=== PATIENT | female | born 1980 | race Caucasian/White ===

== ENCOUNTER 2021-06-09 10:09 | Inpatient (IN) | payer BC ==
[~2021-06-09] VITALS: Ht 165.1 cm; Wt 103.9 kg
[2021-06-09] MEDS ORDERED: ACETAMINOPHEN 650MG SUPP PR STA (10:54)
[2021-06-09] MEDS ORDERED: SODIUM CHLORIDE 0.9% 1,000 ML IV ONE (11:00)
[2021-06-09 11:36] LABS: BASOPHILS % 0.2 % (0.0-2.0); HEMATOCRIT. 43.9 % (36.0-48.0); HEMOGLOBIN. 15.3 g/dL (12.0-16.0); LYMPHOCYTES % 20.2 % (20.0-50.0); MEAN CORPUSCULAR HEMOGLOBIN 31.6 pg (28.0-32.0); MEAN CORPUSCULAR VOLUME 90.7 fL (81.0-99.0); MEAN PLATELET VOLUME 7.7 fl (7.4-10.4); MONOCYTES % 7.6 % (2.0-8.0); PLATELET 209 x1000/uL (130-400); RED BLOOD CELL COUNT 4.85 mill/uL (4.2-5.4); RED CELL DISTRIBUTION WIDTH 13.6 % (11.6-14.6)
[2021-06-09 11:41] LABS: CHLORIDE 106 mEq/L (98-107)
[2021-06-09 11:46] LABS: ETHANOL BLOOD < 10 mg/dL
[2021-06-09 11:49] LABS: PROTHROMBIN TIME 10.8 sec (9.6-11.0)
[2021-06-09 11:51] LABS: CREATINE KINASE 66 IU/L (26-192)
[2021-06-09 12:10] LABS: HCG SCREEN NEGATIVE
[2021-06-09] MEDS ORDERED: DEXAMETHASONE 10 MG/ML VIAL IV ONE (12:30)
[2021-06-09] MEDS ORDERED: AZITHROMYCIN 500 MG in DEXT 5% WATER 250 ML IV SCH (12:30)
[2021-06-09] MEDS ORDERED: CEFTRIAXONE 1 G PREMIX 50 ML IV ONE (12:30)
[2021-06-09] MEDS ORDERED: KETOROLAC 15MG/ML VIAL IV ONE (12:30)
[2021-06-09 15:14] LABS: CLARITY URINE TURBID (CLEAR); COLOR URINE DARK YELLOW (YELLOW); KETONES URINE TRACE (NEGATIVE); LEUKOCYTE ESTERASE URINE 1+ (NEGATIVE); NITRITE URINE NEGATIVE (NEGATIVE); OCCULT BLOOD URINE 2+ (NEGATIVE); PH URINE 6.5 (4.5-8.0); PROTEIN URINE 2+ (NEGATIVE); SPECIFIC GRAVITY URINE 1.025 (1.005-1.030)
[2021-06-09 15:52] LABS: *BARBITURATES SCREEN URINE NEGATIVE (NEGATIVE)
[2021-06-09 15:53] LABS: *AMPHETAMINES SCREEN URINE NEGATIVE (NEGATIVE); *BENZODIAZEPINES SCREEN URINE NEGATIVE (NEGATIVE); *COCAINE SCREEN URINE NEGATIVE (NEGATIVE); METHADONE URINE SCREEN NEGATIVE (NEGATIVE); OPIATES URINE SCREEN NEGATIVE (NEGATIVE)
[2021-06-09 15:54] LABS: CANNABINOID URINE SCREEN NEGATIVE (NEGATIVE); PHENCYCLIDINE URINE SCREEN NEGATIVE (NEGATIVE)
[2021-06-10 10:56] VITALS: BP 130/63
[2021-06-10] MEDS ORDERED: DEXTROSE 50% WATER 50ML SYRINGE IV PRN (11:00)
[2021-06-10] MEDS ORDERED: IPRATROPIUM/ALBUTEROL 0.5-3(2.5)MG/3ML NEB HHN PRN ×3 (11:00→14:30)
[2021-06-10] MEDS ORDERED: METF-873 MT (11:06)
[2021-06-10] MEDS ORDERED: MONT5TAB13 MT (11:06)
[2021-06-10] MEDS ORDERED: CETI5TAB5 MT (11:06)
[2021-06-10 11:32] LABS: BG BASE EXCESS 0.6 mmol/L (-2.0-2.0); BG CARBOXYHEMOGLOBIN 0.1 % (0.5-1.5); BG DEOXYHEMOGLOBIN 2.1 % (0.0-5.0); BG HCO3 ACT 24.2 mmol/L (22.0-26.0); BG METHEMOGLOBIN 0.4 % (0.0-1.5); BG OXYGEN SATURATION 97.9 % (92.0-98.5); BG OXYHEMOGLOBIN 97.4 % (94.0-97.0); BG PH 7.446 (7.350-7.450); BG PO2 105.4 mmHg (75.0-100.0); BG SAMPLE SITE LEFT BRACHIAL; BG TOTAL HEMOGLOBIN 15.7 g/dL (12.0-18.0); BG VENT MODE MASK - SIMPLE
[2021-06-10 12:00] VITALS: BP 130/63
[2021-06-10] MEDS: BLOOD SUGAR DIAGNOSTIC STRIP TEST SCH ×3 (12:21→21:22)
[2021-06-10] MEDS: INSULIN LISPRO 100 UNITS/ML SUBCUT SCH ×3 (12:22→21:22)
[2021-06-10] MEDS ORDERED: AZITHROMYCIN 500 MG in DEXT 5% WATER 250 ML IV SCH ×2 (14:00→16:00)
[2021-06-10] MEDS ORDERED: DEXAMETHASONE 10 MG/ML VIAL IV SCH (14:30)
[2021-06-10] MEDS ORDERED: ONDANSETRON HCL 4MG/2ML INJ IV PRN (14:30)
[2021-06-10] MEDS ORDERED: HYDROCODONE/ACETAMINOPHEN 5/325MG TABLET PO PRN (14:30)
[2021-06-10] MEDS ORDERED: MORPHINE SULFATE 2 MG/ML CPJ (NOT FOR IM USE) IV PRN (14:30)
[2021-06-10] MEDS: ENOXAPARIN 30MG/0.3ML SYR SUBCUT SCH (14:55)
[2021-06-10] MEDS ORDERED: CEFTRIAXONE 1,000 MG in DEXTROSE 5% WATER 50 ML IV SCH (16:00)
[2021-06-10 16:12] VITALS: BP 129/69
[2021-06-10] MEDS ORDERED: NALOXONE HCL 0.4MG/ML VIAL IV PRN (17:30)
[2021-06-10] MEDS: AZITHROMYCIN 500 MG in DEXT 5% WATER 250 ML IV SCH (17:44)
[2021-06-10 20:00] VITALS: BP 114/65
[2021-06-10 23:31] LABS: CREATINE KINASE 58 IU/L (26-192)
[2021-06-10 23:32] LABS: CREATINE KINASE MB FRACTION < 1.0 ng/mL (0.5-3.6)
[2021-06-11] VITALS: BP 118/47
[2021-06-11 04:00] VITALS: BP 108/63
[2021-06-11] MEDS: BLOOD SUGAR DIAGNOSTIC STRIP TEST SCH ×4 (05:54→20:34)
[2021-06-11] MEDS: ENOXAPARIN 30MG/0.3ML SYR SUBCUT SCH ×2 (05:54→17:17)
[2021-06-11] MEDS: INSULIN LISPRO 100 UNITS/ML SUBCUT SCH ×4 (05:59→20:34)
[2021-06-11 06:31] LABS: CHLORIDE 107 mEq/L (98-107)
[2021-06-11 06:40] LABS: LDL CHOLESTEROL 118 mg/dL (5-100)
[2021-06-11 06:41] LABS: CREATINE KINASE 47 IU/L (26-192); HDL CHOLESTEROL 39 mg/dL (40-59)
[2021-06-11 06:45] LABS: CREATINE KINASE MB FRACTION < 1.0 ng/mL (0.5-3.6)
[2021-06-11 06:48] LABS: BASOPHILS % 0.1 % (0.0-2.0); HEMOGLOBIN. 14.7 g/dL (12.0-16.0); LYMPHOCYTES % 29.8 % (20.0-50.0); MEAN CORPUSCULAR HEMOGLOBIN 31.5 pg (28.0-32.0); MEAN CORPUSCULAR VOLUME 92.4 fL (81.0-99.0); NEUTROPHILS % 61.1 % (40.0-76.0); PLATELET 255 x1000/uL (130-400); RED BLOOD CELL COUNT 4.65 mill/uL (4.2-5.4); RED CELL DISTRIBUTION WIDTH 13.3 % (11.6-14.6)
[2021-06-11 08:00] VITALS: BP 104/54
[2021-06-11 11:50] VITALS: BP 111/64
[2021-06-11] MEDS: CEFTRIAXONE 1,000 MG in DEXTROSE 5% WATER 50 ML IV SCH (13:08)
[2021-06-11 14:53] LABS: BG BASE EXCESS 0.7 mmol/L (-2.0-2.0); BG CARBOXYHEMOGLOBIN 0.4 % (0.5-1.5); BG DEOXYHEMOGLOBIN 3.6 % (0.0-5.0); BG FRACTION INSPIRED OXYGEN 36; BG HCO3 ACT 23.5 mmol/L (22.0-26.0); BG METHEMOGLOBIN 0.3 % (0.0-1.5); BG OXYGEN SATURATION 96.4 % (92.0-98.5); BG OXYHEMOGLOBIN 95.7 % (94.0-97.0); BG PCO2 32.7 mmHg (35.0-45.0); BG PH 7.475 (7.350-7.450); BG PO2 84.2 mmHg (75.0-100.0); BG SAMPLE SITE RIGHT RADIAL; BG TOTAL HEMOGLOBIN 15.3 g/dL (12.0-18.0); BG VENT MODE NASAL CANNULA
[2021-06-11 16:00] VITALS: BP 128/62
[2021-06-11] MEDS: AZITHROMYCIN 500 MG in DEXT 5% WATER 250 ML IV SCH (17:16)
[2021-06-11] MEDS: ALBUTEROL 6.7GM HFA INHALER ORI SCH ×2 (18:32→23:39)
[2021-06-11 20:00] VITALS: BP 91/44
[2021-06-11] MEDS: ACETAMINOPHEN 325MG TABLET PO PRN (20:30)
[2021-06-11] MEDS ORDERED: FAMOTIDINE 20MG TABLET PO SCH (21:00)
[2021-06-12] VITALS: BP 118/83
[2021-06-12 04:00] VITALS: BP 106/55
[2021-06-12] MEDS: ALBUTEROL 6.7GM HFA INHALER ORI SCH ×3 (05:50→18:00)
[2021-06-12] MEDS: ENOXAPARIN 30MG/0.3ML SYR SUBCUT SCH ×2 (05:50→18:00)
[2021-06-12] MEDS: INSULIN LISPRO 100 UNITS/ML SUBCUT SCH ×3 (06:22→18:10)
[2021-06-12] MEDS: BLOOD SUGAR DIAGNOSTIC STRIP TEST SCH ×3 (06:22→18:11)
[2021-06-12 06:46] LABS: BASOPHILS % 0.1 % (0.0-2.0); EOSINOPHILS % 0.3 % (0.0-5.0); HEMATOCRIT. 43.5 % (36.0-48.0); HEMOGLOBIN. 14.9 g/dL (12.0-16.0); MEAN CORPUSCULAR HEMOGLOBIN 31.5 pg (28.0-32.0); MEAN CORPUSCULAR VOLUME 92.2 fL (81.0-99.0); MEAN PLATELET VOLUME 7.9 fl (7.4-10.4); MONOCYTES % 9.9 % (2.0-8.0); NEUTROPHILS % 43.7 % (40.0-76.0); PLATELET 266 x1000/uL (130-400); RED BLOOD CELL COUNT 4.72 mill/uL (4.2-5.4); RED CELL DISTRIBUTION WIDTH 13.6 % (11.6-14.6)
[2021-06-12 07:03] LABS: CHLORIDE 105 mEq/L (98-107)
[2021-06-12 08:00] VITALS: BP 112/58
[2021-06-12] MEDS ORDERED: DEXAMETHASONE 4MG TABLET PO SCH (09:00)
[2021-06-12] MEDS: ACETAMINOPHEN 325MG TABLET PO PRN (09:38)
[2021-06-12 12:00] VITALS: BP 109/54
[2021-06-12] MEDS ORDERED: FAMO-135 PO (12:38)
[2021-06-12] MEDS ORDERED: DEXA4TAB PO (12:38)
[2021-06-12] MEDS ORDERED: ALBU90AE INH (12:38)
[2021-06-12] MEDS: CEFTRIAXONE 1,000 MG in DEXTROSE 5% WATER 50 ML IV SCH (12:42)
[2021-06-12] MEDS ORDERED: LEVO500T89 MT (15:25)
[2021-06-12] MEDS: AZITHROMYCIN 500 MG in DEXT 5% WATER 250 ML IV SCH (18:17)
[2021-06-12 19:18] VITALS: BP 112/60
== END 2021-06-12 20:07 | disposition home or self-care (01) | DRG 871 ==
LOC: ER 10:09 → MICUSO 14:14 → EDBEDREQ 14:21 → EDBEDREQSVC 14:21 → MICUSO 17:50 → 7WST 06-10 07:27
PROVIDERS: ADMIT Internal Medicine; ATTEND Internal Medicine
DX: A41.89 Other specified sepsis (principal); U07.1 COVID-19; J12.82 Pneumonia due to coronavirus disease 2019; J96.91 Respiratory failure, unspecified with hypoxia; D68.59 Other primary thrombophilia; I10 Essential (primary) hypertension; E78.00 Pure hypercholesterolemia, unspecified; E11.9 Type 2 diabetes mellitus without complications; Z82.49 Family history of ischemic heart disease and other diseases of the circulatory system; Z90.49 Acquired absence of other specified parts of digestive tract; Z79.84 Long term (current) use of oral hypoglycemic drugs; Z79.899 Other long term (current) drug therapy
CPT/HCPCS: 36415; 36600; 71045; 80048; 80053; 80061; 80305; 80320; 81003; 82375; 82550; 82553; 82728; 82805; 82962; 83036; 83605; 83615; 83880; 84145; 84484; 84703; 85025; 85379; 85384; 86140; 86141; 93005; 99291; C1893; J0456; J0696; J1100; J1650; J1815; J1885; J7030; J7060; J8540; U0003; U0005; G0480